=== PATIENT | male | born 1975 | race Caucasian/White ===

== ENCOUNTER 2020-07-24 04:49 | Outpatient (CLI) | payer BC, SELFPAY ==
[2020-07-24 14:44] LABS: HCT 43.6 % (40.0-50.0); HGB 14.9 g/dL (13.5-17.5); MCHC 34.2 % (32.0-36.0); MCV 90.6 fL (80-95); MPV 8.6 fL (8.0-11.0); Platelet Count 210 10^3/uL (130-400); RBC 4.81 10^6/uL (4.36-5.78); RDW 11.8 % (11.8-14.1); RDW-SD 38.9 fL
[2020-07-24 15:44] LABS: ALT 32 U/L (16-63); AST 22 U/L (15-37); Alkaline Phosphatase 32 U/L (46-116); Anion Gap 8.9 mmol/L (3-11); BUN 23 mg/dL (7-18); Bilirubin, Total 0.3 mg/dL (0.2-1.0); CO2 29.1 mmol/L (21.0-32.0); CREATININE 1.45 mg/dL (0.70-1.30); Calcium 8.6 mg/dL (8.5-10.1); Calculated LDL 117 mg/dL (<100); Chloride 100 mmol/L (98-107); Cholesterol 195 mg/dL (<200); Estimated GFR 52.87 (mL/min/1.73m2); Glucose 108 mg/dL (74-106); HDL Cholesterol 60 mg/dL (40-60); Potassium 3.9 mmol/L (3.5-5.1); Sodium 138 mmol/L (136-145); TSH (W/Ref FT4) 1.36 uIU/mL (0.36-3.74); Total Protein 7.3 g/dL (6.4-8.2); Triglyceride 92 mg/dL (<150)
== END 2020-07-24 05:09 ==
PROVIDERS: PCP Nurse Practitioner; Visit Provider Nurse Practitioner
DX: Z00.00 Encounter for general adult medical examination without abnormal findings (principal); R00.0 Tachycardia, unspecified; Z13.220 Encounter for screening for lipoid disorders
CPT/HCPCS: 36415; 80053; 80061; 85027; 84443

== ENCOUNTER 2020-07-27 07:23 | Outpatient (CLI) | payer BC, SELFPAY ==
--- NOTE | 2020-08-06 08:22 | ZIOP_ITS ---
Date of service: 08/06/20 Time of Service: 08:22 14 Day [employer] Referring Provider:: leesa Indications:: tachycardia Note: This is a 14-day remote monitor (worn for 4 days) ?The patient was in normal sinus rhythm for the majority of the recording with an average heart rate of 62 bpm. ?There were 2 episodes of supraventricular tachycardia with the longest lasting 5 beats. ?There were no episodes of ventricular tachycardia, no evidence of high degree heart block, and no pauses greater than 3 seconds. ?There are no episodes of atrial fibrillation. ?There were rare PACs and rare PVCs. ?There were no patient recorded events.
== END 2020-07-27 07:43 ==
PROVIDERS: PCP Nurse Practitioner; Visit Provider Nurse Practitioner
DX: R00.2 Palpitations (principal)
CPT/HCPCS: 0296T

== ENCOUNTER 2021-06-16 10:19 | Emergency (ER) | payer BC, SELFPAY ==
[2021-06-16] VITALS (30 sets, daily range): BP systolic 131–152; BP diastolic 69–83; PULSE 56–73; RESP 10–22; TEMP 36.4; O2SAT 94–100
--- NOTE | 2021-06-16 10:15 | RT.EKG_ITS ---
APPROVED REPORT Exam: Resting ECG Reason for Exam: palpitations Patient Location: E HR:66 bpm ECG Measurements Heart Rate 66 AXIS SC 150 P 78 QRSd 99 QRS 72 QT 385 T 48 QTc 402 Conclusion Sinus rhythm...normal P axis, V-rate 60- 99 ST elev, probable normal early repol pattern...ST elevation, age<55. Sinus. Benign early repolarization. No STEMI. I have reviewed and interpreted ECG and agree with software generated interpretation.
--- NOTE | 2021-06-16 10:30 | DI.RAD_ITS ---
Exam(s) XR CHEST 2V PA LATERAL EXAM: XR CHEST 2V PA LATERAL CLINICAL HISTORY: Palpitations. TECHNIQUE: 2D digital imaging was performed. COMPARISON: No exams were available for comparison FINDINGS: Heart size is normal. The mediastinum is not widened. Lungs are clear. No infiltrates nor pleural effusions. IMPRESSION: No acute pulmonary findings. DATA REPOSITORY: RADIATION DOSE DELIVERED:
[2021-06-16 10:40] LABS: Abs Immature Grans 0.05 10^3/uL (0.0-0.06); Absolute Basophil Count 0.02 10^3/uL (0.0-0.2); Absolute Eosinophil Count 0.05 10^3/uL (0.0-0.7); Absolute Lymphocyte Count 1.13 10^3/uL (1.2-3.4); Absolute Monocyte Count 0.78 10^3/uL (0.1-0.8); Absolute Neutrophil Count 8.04 10^3/uL (1.2-6.7); Basophils % 0.2; Eosinophils % 0.5; HCT 45.1 % (40.0-50.0); HGB 15.4 g/dL (13.5-17.5); Immature Grans % 0.5; Lymphocytes % 11.2; MCH 30.7 pg (27.0-33.0); MCHC 34.1 % (32.0-36.0); MPV 8.4 fL (8.0-11.0); Monocytes % 7.7; Neutrophils % 79.9; Nucleated RBC 0 %; Platelet Count 217 10^3/uL (130-400); RBC 5.01 10^6/uL (4.36-5.78); RDW 11.9 % (11.8-14.1); RDW-SD 39.7 fL; WBC 10.07 10^3/uL (4.4-10.8)
[2021-06-16 10:56] LABS: PTT Activated 24.4 sec (21.0-27.5); Prothrombin Time 10.5 sec (9.3-11.0)
[2021-06-16 11:02] LABS: ALT 43 U/L (16-63); AST 30 U/L (15-37); Albumin 4.1 g/dL (3.4-5.0); Alkaline Phosphatase 31 U/L (46-116); Anion Gap 5.1 mmol/L (3-11); BUN 20 mg/dL (7-18); Bilirubin, Total 0.5 mg/dL (0.2-1.0); CO2 31.9 mmol/L (21.0-32.0); CREATININE 1.4 mg/dL (0.70-1.30); Calcium 8.7 mg/dL (8.5-10.1); Chloride 103 mmol/L (98-107); Glucose 130 mg/dL (74-106); Magnesium 2.1 mg/dL (1.8-2.4); Sodium 140 mmol/L (136-145); TSH (W/Ref FT4) 1.16 uIU/mL (0.36-3.74); Total Protein 7.7 g/dL (6.4-8.2)
[2021-06-16 11:03] LABS: Troponin I < 0.05 ng/mL (<0.06)
[2021-06-16 11:13] LABS: D-Dimer 456 ng/mlFEU (<500)
--- NOTE | 2021-06-16 11:21 | ED.GENADUL_ITS ---
Discharge Plan Disposition Patient Disposition: HOME Condition: Stable Discharge Details Clinical Impression: Chest pain, Palpitation Primary Care Provider: iJa Wilson ED Provider: Godwin Crystal Home Meds and New Rx's Prescriptions: Continued Chantix Starting Month Box 0.5 mg (11)- 1 mg (42) tablets,dose pack See Rx Instructions PO PER PKG DIR Qty: 53 RF: 0 varenicline [Chantix Continuing Month Box] 1 mg tablet 1 mg PO BID Qty: 56 RF: 3 multivitamin [Daily Multi-Vitamin] 1 EACH tablet 1 ea PO DAILY RF: 0 Discharge Instructions Instructions: Chest Pain (ED), Heart Palpitations (ED) Additional Instructions: Work-up in the ER does not reveal any obvious emergent process. I personally spoke with your primary care provider who is aware of your ER visit and will be having her office reach out to you in the next day or so to set up outpatient follow-up. Please watch for new or worsening symptoms and return to the ER for any concerns. Discharge Data Discharge Date/Time-TO BE ENTERED AT DEPARTURE: 06/16/21 13:17 Medical Decision Making This is a 46-year-old male who reports acute on chronic palpitations, A. fib, chest pressure and shortness of breath when his palpitations are present. Most recent episode was around 8:00 this morning and lasted for 15 minutes. He is currently asymptomatic. Clinically he appears well, nontoxic. He does have chronic right lower extremity swelling, given this is chronic in nature, low suspicion for acute DVT. No erythema or warmth. Negative Homans' sign. Given his presentation, will obtain a cardiac work-up including a D-dimer, delta troponin although he can be drawn again at 11:30 AM as this would be 3 hours from his last symptom. Will also obtain thyroid studies. Will obtain chest x- ray as well. He will be placed on the monitoring and evaluation advisor and observed while here in the ER Patient has remained asymptomatic under my care. His laboratory values are unremarkable for leukocytosis, anemia, electrolyte abnormality, D-dimer is normal at 456, creatinine 1.4 with a GFR 54.80 glucose 130 magnesium 2.1 initial troponin less than 0.05 TSH 1.16. Chest x-ray unremarkable. Discussed initial work-up with patient. He remains asymptomatic. He has an appoint with his primary care provider at 330 this afternoon. Given this I will reach out to the patient's primary care provider to discuss his ER visit and symptoms. I was able to speak with Jia Wilson, she is aware of the patient's visit, benign work-up thus far, and will be happy to follow patient as an outpatient. Given his ER visit today he no longer has an appointment at 330 this afternoon and instead she will have her clinic reach out to him to set up an appointment. She will discuss outpatient echo, Holter, potential medication regimen, etc. at the next appointment. I did discuss this plan with the patient. He is comfortable this plan and has no additional questions or concerns. Repeat troponin remains less than 0.05. Patient remains asymptomatic. Patient has no additional questions or concerns and is comfortable discharge at this time. Strict discharge and return precautions provided. This documentation was generated using [employer] system, please disregard any oddities of phrase or misspellings. Medical Records Medical records reviewed: Yes I reviewed the patient's medical records. Imaging Data Radiologic Study: Attestation: I personally reviewed and interpreted this imaging study as follows: Imaging: X-Ray Radiologist's impression: Exam(s) XR CHEST 2V PA LATERAL EXAM: XR CHEST 2V PA LATERAL CLINICAL HISTORY: Palpitations. TECHNIQUE: 2D digital imaging was performed. COMPARISON: No exams were available for comparison FINDINGS: Heart size is normal. The mediastinum is not widened. Lungs are clear. No infiltrates nor pleural effusions. IMPRESSION: No acute pulmonary findings. Lab Data Lab results reviewed: Yes I reviewed the patient's lab results. Labs: Laboratory Tests Range/Units 06/16/21 06/16/21 06/16/21 10:30 10:30 10:30 WBC (4.4-10.8) 10^3/uL 10.07 RBC (4.36-5.78) 10^6/uL 5.01 Hgb (13.5-17.5) g/dL 15.4 Hct (40.0-50.0) % 45.1 MCV (80-95) fL 90.0 MCH (27.0-33.0) pg 30.7 MCHC (32.0-36.0) % 34.1 RDW (11.8-14.1) % 11.9 Plt Count (130-400) 10^3/uL 217 MPV (8.0-11.0) fL 8.4 Immature Gran % 0.5 Neutrophils % 79.9 Lymphocytes % 11.2 Monocytes % 7.7 Eosinophils % 0.5 Basophils % 0.2 Nucleated RBC % % 0 Absolute Neutrophils (1.2-6.7) 10^3/uL 8.04 H Absolute Lymphocytes (1.2-3.4) 10^3/uL 1.13 L Absolute Monocytes (0.1-0.8) 10^3/uL 0.78 Absolute Eosinophils (0.0-0.7) 10^3/uL 0.05 Absolute Basophils (0.0-0.2) 10^3/uL 0.02 PT (9.3-11.0) sec 10.5 INR (0.9-1.1) 1.0 APTT (21.0-27.5) sec 24.4 D-Dimer (<500) ng/mlFEU 456 Sodium (136-145) mmol/L 140 Potassium (3.5-5.1) mmol/L 4.0 Chloride (98-107) mmol/L 103 Carbon Dioxide (21.0-32.0) mmol/L 31.9 Anion Gap (3-11) mmol/L 5.1 BUN (7-18) mg/dL 20 H Creatinine (0.70-1.30) mg/dL 1.4 H Estimated GFR/1.73 m2 (mL/min/1.73m2) 54.80 Glucose (74-106) mg/dL 130 H Calcium (8.5-10.1) mg/dL 8.7 Magnesium (1.8-2.4) mg/dL 2.1 Total Bilirubin (0.2-1.0) mg/dL 0.5 AST (15-37) U/L 30 ALT (16-63) U/L 43 Alkaline Phosphatase (46-116) U/L 31 L Troponin I (<0.06) ng/mL < 0.05 Total Protein (6.4-8.2) g/dL 7.7 Albumin (3.4-5.0) g/dL 4.1 TSH (0.36-3.74) uIU/mL 1.16 Range/Units 06/16/21 12:13 WBC (4.4-10.8) 10^3/uL RBC (4.36-5.78) 10^6/uL Hgb (13.5-17.5) g/dL Hct (40.0-50.0) % MCV (80-95) fL MCH (27.0-33.0) pg MCHC (32.0-36.0) % RDW (11.8-14.1) % Plt Count (130-400) 10^3/uL MPV (8.0-11.0) fL Immature Gran % Neutrophils % Lymphocytes % Monocytes % Eosinophils % Basophils % Nucleated RBC % % Absolute Neutrophils (1.2-6.7) 10^3/uL Absolute Lymphocytes (1.2-3.4) 10^3/uL Absolute Monocytes (0.1-0.8) 10^3/uL Absolute Eosinophils (0.0-0.7) 10^3/uL Absolute Basophils (0.0-0.2) 10^3/uL PT (9.3-11.0) sec INR (0.9-1.1) APTT (21.0-27.5) sec D-Dimer (<500) ng/mlFEU Sodium (136-145) mmol/L Potassium (3.5-5.1) mmol/L Chloride (98-107) mmol/L Carbon Dioxide (21.0-32.0) mmol/L Anion Gap (3-11) mmol/L BUN (7-18) mg/dL Creatinine (0.70-1.30) mg/dL Estimated GFR/1.73 m2 (mL/min/1.73m2) Glucose (74-106) mg/dL Calcium (8.5-10.1) mg/dL Magnesium (1.8-2.4) mg/dL Total Bilirubin (0.2-1.0) mg/dL AST (15-37) U/L ALT (16-63) U/L Alkaline Phosphatase (46-116) U/L Troponin I (<0.06) ng/mL < 0.05 Total Protein (6.4-8.2) g/dL Albumin (3.4-5.0) g/dL TSH (0.36-3.74) uIU/mL ECG Data Attestation: I personally reviewed and interpreted this ECG (s) as follows: Interpretation: Please see official report by Dr. Sibley. Sinus rhythm, ventr icular of 66. Benign early repolarization. No STEMI. HPI General Mode of arrival: ambulatory . Date/Time Provider Initiated Documentation: 06/16/21 10:32 . Limitations to Documentation: no limitations . Information obtained by: patient . HPI Narrative: This is a 46-year-old gentleman, current half a pack a day smoker, past medical history of palpitations-A. fib, presenting to the ER reporting acute on chronic palpitations and when the palpitations are present experiences chest pressure and shortness of breath. Patient states he has had similar symptoms for several years and has been evaluated for this in the past. Recently he has had increased stressors in his life, feels as though his symptoms are more frequent and when they are present they are lasting longer than typical. Most recently he had an episode at 8:00 this morning that lasted for approximately 15 minutes, during that timeframe he had left-sided chest pressure and shortness of breath. He does wear a smart watch and when he has these episodes he is told that he is in A. fib. Contacted his primary care office and directed to the ER for evaluation. Patient reports chronic right lower extremity edema which is unchanged from baseline. Denies increased swelling, redness, history of DVT or PE. He denies cough. He is vaccinated against Covid. He states that in the past he was on propanolol but did not like the way it made him feel and is no longer taking the medication. Related Data Home Medications Medication Instructions Recorded Confirmed multivitamin [Daily Multi-Vitamin] 1 ea PO DAILY 06/24/15 06/16/21 varenicline 0.5 mg (11)-1 mg (42) See Rx Instructions PO PER PKG DIR 07/21/20 06/16/21 tablets in a dose pack #53 dose pk varenicline 1 mg tablet 1 mg PO BID #56 tab 07/21/20 06/16/21 Previous Rx's Medication Instructions Recorded varenicline 0.5 mg (11)-1 mg (42) See Rx Instructions PO PER PKG DIR 07/21/20 tablets in a dose pack #53 dose pk varenicline 1 mg tablet 1 mg PO BID #56 tab 07/21/20 Allergies Allergy/AdvReac Type Severity Reaction Status Date / Time cat dander Allergy Mild Itchy Verified 06/16/21 10:31 eyes, sneeze No Known Drug Allergies Allergy Verified 06/16/21 10:31 General Stated Complaint: Palpitatns PANTERA: 2 Review of Systems Constitutional Constitutional: Denies fever(s), Reports headache(s) and Denies weakness Eyes Eyes: Denies change in vision ENT Ears, Nose, Mouth, and Throat: Reports headache(s) Cardiovascular Cardiovascular: Reports chest pain, Reports palpitations and Reports dyspnea Respiratory Respiratory: Denies cough, Reports dyspnea and Denies wheezing Gastrointestinal Gastrointestinal: Denies abdominal pain, Denies nausea and Denies vomiting Musculoskeletal Musculoskeletal: Denies back pain, Denies numbness and Denies tingling Integumentary/Breasts Skin/Breast: Denies rash Neurologic Neurologic: Reports headache(s), Denies numbness, Denies tingling and Denies weakness Endocrine Endocrine: Reports palpitations Allergic/Immunologic Allergic/Immunologic: Denies wheezing FOR[facility]LY [facility] Medical History Family history of skin cancer Muscle strain Tobacco abuse Surgical History Vasectomy Family History Mother Diabetes Arthritis Father No problems noted. Sister No problems noted. Brother Wlqni-Gdfaqlekg-Klgqs (WPW) syndrome Social History Smoking/Tobacco Use Status: Current every day Tobacco Type: cigarettes Tobacco: How many years used: 20 Quit status: considering quitting Smoking risk assessment performed?: Yes Alcohol Intake: current Alcohol Intake frequency: a few times a month Drug use: Occasionally Substance use type: marijuana Household members: spouse Number of Children: 0 Pets and animals: Yes Pets and animals: dog(s) What is your relationship status?: Panel score (0-1 are the most socially isolated patients): 1 What type of physical activity do you participate in: regular exercise Working smoke detector in home: Yes Carbon monox detector in home: Yes Exam Const General: cooperative, healthy appearing, comfortable and no acute distress Orientation: alert, awake and oriented x3 HENMT Head: normal to inspection, normocephalic and atraumatic Face and sinus: normal facial exam Mouth: moist mucous membranes Eyes General: appearance normal, both eyes and all related structures Conjunctivae: conjunctivae normal Neck Neck: normal visual inspection, trachea midline and supple Chest Chest: normal inspection of the chest and normal palpation of entire chest wall Resp Effort & Inspection: normal respiratory effort and able to speak in complete sentences Auscultation: clear to auscultation bilaterally Cardio Rate: regular rate Rhythm: regular rhythm GI Palpation: soft, not firm, no guarding and nontender Back/Spine/Pelvis Back: No back tenderness Skin General skin exam: no rashes or lesions noted Neuro General: patient alert, patient awake, moves all extremities and no focal motor deficits Cognition: normal cognition Speech: speech normal Gait: normal gait Motor: muscle tone normal throughout Sensory Exam: no sensory deficits noted Extrem General: full ROM and capillary refill normal Other: Right lower extremity with 1+ pitting edema. Patient reports this is b aseline. There is no erythema or warmth. No tenderness. Negative Homans' sign. Psych Appearance: grossly normal Mental Status: mental status grossly normal Course Vital Signs Vital signs: Vital Signs Temperature 36.4 C L 06/16/21 10:27 Pulse 65 06/16/21 10:27 Respiratory Rate 16 06/16/21 10:27 Blood Pressure 152/77 H 06/16/21 10:27 Pulse Oximetry 100 06/16/21 10:27 Temperature 36.4 C L 06/16/21 10:27 Temperature Source Skin 06/16/21 10:27 Pulse 65 06/16/21 10:27 Respiratory Rate 16 06/16/21 10:27 Respiratory Effort 06/16/21 10:27 Blood Pressure 152/77 H 06/16/21 10:27 Blood Pressure Position Supine 06/16/21 10:27 Pulse Oximetry 100 06/16/21 10:27 Pain Level 4 06/16/21 10:35 Lab/Test Results Lab/Test Results: Laboratory Tests Range/Units 06/16/21 06/16/21 06/16/21 10:30 10:30 10:30 WBC (4.4-10.8) 10^3/uL 10.07 RBC (4.36-5.78) 10^6/uL 5.01 Hgb (13.5-17.5) g/dL 15.4 Hct (40.0-50.0) % 45.1 MCV (80-95) fL 90.0 MCH (27.0-33.0) pg 30.7 MCHC (32.0-36.0) % 34.1 RDW (11.8-14.1) % 11.9 Plt Count (130-400) 10^3/uL 217 MPV (8.0-11.0) fL 8.4 Immature Gran % 0.5 Neutrophils % 79.9 Lymphocytes % 11.2 Monocytes % 7.7 Eosinophils % 0.5 Basophils % 0.2 Nucleated RBC % % 0 Absolute Neutrophils (1.2-6.7) 10^3/uL 8.04 H Absolute Lymphocytes (1.2-3.4) 10^3/uL 1.13 L Absolute Monocytes (0.1-0.8) 10^3/uL 0.78 Absolute Eosinophils (0.0-0.7) 10^3/uL 0.05 Absolute Basophils (0.0-0.2) 10^3/uL 0.02 PT (9.3-11.0) sec 10.5 INR (0.9-1.1) 1.0 APTT (21.0-27.5) sec 24.4 D-Dimer (<500) ng/mlFEU 456 Sodium (136-145) mmol/L 140 Potassium (3.5-5.1) mmol/L 4.0 Chloride (98-107) mmol/L 103 Carbon Dioxide (21.0-32.0) mmol/L 31.9 Anion Gap (3-11) mmol/L 5.1 BUN (7-18) mg/dL 20 H Creatinine (0.70-1.30) mg/dL 1.4 H Estimated GFR/1.73 m2 (mL/min/1.73m2) 54.80 Glucose (74-106) mg/dL 130 H Calcium (8.5-10.1) mg/dL 8.7 Magnesium (1.8-2.4) mg/dL 2.1 Total Bilirubin (0.2-1.0) mg/dL 0.5 AST (15-37) U/L 30 ALT (16-63) U/L 43 Alkaline Phosphatase (46-116) U/L 31 L Troponin I (<0.06) ng/mL < 0.05 Total Protein (6.4-8.2) g/dL 7.7 Albumin (3.4-5.0) g/dL 4.1 TSH (0.36-3.74) uIU/mL 1.16
[2021-06-16 12:42] LABS: Troponin I < 0.05 ng/mL (<0.06)
== END 2021-06-16 13:17 | disposition home or self-care (01) ==
PROVIDERS: Emergency Provider Physician Assistant; PCP Nurse Practitioner
DX: R07.9 Chest pain, unspecified (principal); R00.2 Palpitations; R06.02 Shortness of breath
CPT/HCPCS: 36415; 80053; 93005; 99284; 71046; 83735; 84443; 84484; 85025; 85379; 85610; 85730; 93010

== ENCOUNTER 2021-07-01 02:12 | Outpatient (CLI) | payer BC, SELFPAY ==
[2021-07-01 08:20] LABS: Hemoglobin A1C 5.1 % (<5.7)
[2021-07-01 09:21] LABS: ALT 31 U/L (16-63); AST 16 U/L (15-37); Albumin 3.8 g/dL (3.4-5.0); Alkaline Phosphatase 28 U/L (46-116); Anion Gap 6.8 mmol/L (3-11); BUN 17 mg/dL (7-18); Bilirubin, Total 0.5 mg/dL (0.2-1.0); CO2 30.2 mmol/L (21.0-32.0); CREATININE 1.3 mg/dL (0.70-1.30); Calcium 8.9 mg/dL (8.5-10.1); Calculated LDL 120 mg/dL (<100); Chloride 103 mmol/L (98-107); Cholesterol 181 mg/dL (<200); Glucose 90 mg/dL (74-106); HDL Cholesterol 49 mg/dL (40-60); Potassium 4.4 mmol/L (3.5-5.1); Sodium 140 mmol/L (136-145); TSH (W/Ref FT4) 1.11 uIU/mL (0.36-3.74); Total Protein 6.9 g/dL (6.4-8.2); Triglyceride 60 mg/dL (<150)
== END 2021-07-01 02:13 | disposition home or self-care (01) ==
LOC: LBO 02:12
PROVIDERS: PCP Nurse Practitioner; Visit Provider Nurse Practitioner
DX: R00.2 Palpitations (principal); R07.9 Chest pain, unspecified; R79.89 Other specified abnormal findings of blood chemistry
CPT/HCPCS: 36415; 80053; 80061; 83036; 84443; 84481

== ENCOUNTER 2021-07-13 01:51 | Outpatient (CLI) | payer BC, SELFPAY ==
--- NOTE | 2021-07-13 09:00 | ETT_ITS ---
APPROVED REPORT Exam: Exercise Treadmill Patient Location: Out-Patient Room/Bed: Stress Nurse: Corry Zambrano RN Ordering Provider:JAKOB MATA, Contact Number: [phone] BMI: 26.60 Baseline Rhythm: Sinus Bradycardia Comment: diffuse ST elevations Indications: CHEST PAIN, PALPITATIONS, EXERTIONAL HEART RACING, LIGHTHEADED Medical History Medical History: Cardiac murmur, Tobacco abuse, Scammon disease Cardiac Medications: None Allergies: No known drug allergies Cardiac Risk Factors: FHX of CAD, Smoking (current) Previous Cardiac Procedures: None Pretest Chest Pain Characteristics: None Exercise History: Physically active Physical Disabilities: None Lung Sounds: Clear to auscultation Heart Sounds: Regular Stress Test Details Test: Exercise stress testing was performed using a Ishan protocol. Rest Stress HR Resting HR Supine: 57 bpm Max Heart Rate (APMHR): 175 bpm Resting HR Standin bpm Target HR (85% APMHR): 148 bpm Max HR Achieved: 167 bpm % of APMHR: 95 Recovery HR: 92 bpm HR response to stress: Normal HR response to stress BP Resting BP Supine: 130/78 mmHg Resting BP Standin/78 mmHg Max BP: 178/84 mmHg Recovery BP: 158/78 mmHg BP response to stress: Abnormal hypotensive response to stress. ECG Resting ECG: Sinus Bradycardia Ectopy: None Comment: diffuse ST elevations Stress ECG: Sinus Tachycardia ST Change: No significant ST segment changes noted Arrhythmia: PVCs increasing in frequency during 3rd and 4th stages Recovery ECG: Sinus Rhythm Recovery ST Change: No significant ST segment changes noted Recovery Arrhythmia: frequent PVCs in beginning of recovery phase Clinical Reason for Termination: Fatigue Stress Symptoms: General Fatigue, Dyspnea Exercise duration: 13 min45 sec Highest Stage Reached: Stage 5: 5.0 mph at 18% grade. Exercise capacity: 14.69 METs Rosenthal Treadmill Score: 12 Rate Pressure Product: [id number] Stress ECG Conclusion 1. Resting electrocardiogram was normal 2. The patient exercised on the Ishan protocol and completed a workload of 14.69 METS, stopping due t o fatigue 3. Normal heart rate and blood pressure response to exercise. The patient achieved 95% of predicted heart rate for age 4. Echocardiographically there was no evidence of myocardial ischemia 5. Premature ventricular contractions were described in late exercise and early recovery. This is a nonspecific finding Rosenthal Treadmill Score is 12 which is Low risk. Stress Test Summary STAGE Time (mins) Speed (mph) Grade (%) HR BP SYMPTOMS METS Supine 57 130/78 Standing 65 132/78 1 3 1.7 10 88 134/76 4.6 2 6 2.5 12 109 142/76 7 3 9 3.4 14 128 152/78 10.2 4 12 4.2 16 148 154/80 SpO2 97%, c/o mod SOB 12.9 1 min recovery 148 158/82 3 min recovery 102 178/84 6 min recovery 92 158/78 Patient denied any symptoms of chest pain or palpitations during exercise or in recovery period.
== END 2021-07-13 02:11 ==
PROVIDERS: PCP Nurse Practitioner; Visit Provider Nurse Practitioner
DX: R00.2 Palpitations (principal); R07.9 Chest pain, unspecified; R00.0 Tachycardia, unspecified; R42 Dizziness and giddiness; Z82.49 Family history of ischemic heart disease and other diseases of the circulatory system; F17.210 Nicotine dependence, cigarettes, uncomplicated
CPT/HCPCS: 93017

== ENCOUNTER 2021-08-05 02:37 | Outpatient (CLI) | payer BC, SELFPAY ==
--- NOTE | 2021-08-05 10:31 | DI.US_ITS ---
APPROVED REPORT EXAM: Comprehensive 2D, Doppler, and color-flow Echocardiogram Patient Location: Out-Patient Apn: Praveena Bustamante RDCS (AE) Indications: Palpitations, Chest pain Other Information Study Quality: Good Conclusion Normal left ventricular wall thickness and chamber size. Estimated ejection fraction is 60%. Wall m otion is normal Normal right ventricular size and systolic function Both atria are normal in size The aortic valve is sclerotic without stenosis or regurgitation. The number of aortic valve leaflets could not be accurately determined The ascending aorta was not well visualized Wall motion Left Ventricle The left ventricle is normal size. The left ventricular systolic function is normal. The left ventric ular ejection fraction is within the normal range. There is normal left ventricular wall thickness. T here is normal LV segmental wall motion. There is no ventricular septal defect visualized. LVEF is 60 %. Right Ventricle The right ventricle is normal size. The right ventricular systolic function is normal. The RVSP is 26 .1 mmHg. Atria The left atrium size is normal. The right atrium size is normal. The interatrial septum is intact wit h no evidence for an atrial septal defect. Aortic Valve The aortic valve is sclerotic Number of valve leaflets could not be accurately determined No hemodyna mically significant valvular aortic stenosis. No aortic regurgitation is present. Mitral Valve The mitral valve is normal in structure. No evidence of mitral valve stenosis. Trace mitral regurgita tion. Tricuspid Valve The tricuspid valve is normal in structure. There is no tricuspid valve stenosis. Trace tricuspid reg urgitation. Pulmonic Valve The pulmonary valve is normal in structure. There is no pulmonic valvular stenosis. There is no pulmo ana valvular regurgitation. Great Vessels The aortic root is normal in size. Ascending aorta is not well visualized. Aortic arch is normal in c aliber. IVC is normal in size and collapses >50% with inspiration. Pericardium There is no pericardial effusion. 2D Dimensions IVSD d PLAX 0.90 cm M: 0.6-1.2 LV Vol A2C d MOD 137.5 mL LVPW d PLAX 0.96 cm M: 0.6 - 1.2 LV Vol A4C d MOD 122.9 mL LVID d PLAX 5.18 cm M: 4.2 - 5.8 LA vol/ BSA A2C s A-L 22.0 mL/m2 LVDs 3.40 cm M: 2.5 - 4.0 LA vol/ BSA A4C s A-L 15.0 mL/m2 Ao Root d 3.07 cm M: 3.1 - 3.7 LA Vol/ BSA Biplane s A-L 18.5 mL/m2 RA Area A4C 8.88 cm2 LA Area A4C s MOD 11.79 cm2 RA Vol/ BSA A4C s A-L 9.5 mL/m2 LA Area A2C s MOD 14.52 cm2 LV EF Teichholz 62.2 % LV EF A4C MOD 60.0 % LVEF (Rebolledo's) 61.10 % M: 52 - 72 LV EF A2C MOD 60.0 % LV Volume 102.66 mL M: 62 - 150 LV EF Biplane MOD 61.1 % LV Volume Index 53.19 mL/m2 M: 34 - 74 SV 82.64 mL LV Vol Biplane MOD 135.3 mL SV Index 42.80 mL/m2 FS 33.75 % M-Mode TAPSE 2.89 cm (M/F) >1.7 LV Diastology MV E' medial 0.120 (>0.07 m/s) E/A Ratio 1.6 LV E/e MED 7.45 (<14) MV E Vmax 0.90 (0.4-1.3 m/s) MV E' lateral 0.191 (>0.1 m/s) MV A Vmax 0.55 (0.4-1.3 m/s) LV E/e LAT 4.65 (<14) MV E/A Ratio 1.54 MV E/E' medial 7.47 MV E/E' lateral 4.70 Aortic Valve LVOT Area 2.99 cm2 AoV Area Vmax 1.52 cm2 LVOT Vmax 1.23 m/s AoV Area/ BSA (Vmax) 0.79 cm2/m2 LVOT Mean Donald. 0.79 m/s KATHERINE Mean Donald. 1.39 cm2 LVOT Peak Grad 6.0 mmHg KATHERINE Mean Donald. Index 0.72 cm2/m2 LVOT Mean Grad 3.0 mmHg LVOT VTI 0.276 m LVOT Diam s 1.95 cm AoV Vmax 2.41 m/s Velocity Ratio 0.51 AoV Mean Donald. 1.71 m/s AoV Peak Grad 23.3 mmHg LVOT SV 82.80 mL AoV Mean Grad 13.1 mmHg AoV VTI 0.477 m AoV Area VTI 1.73 cm2 AoV Area/ BSA (VTI) 0.90 cm/m2 Mitral Valve MV DT 195 (160-240 msec) MV PHT 56 msec MV Area PHT 3.90 cm2 MV VTI 0.345 m MV Area VTI 2.40 (4.0-6.0 cm2) Pulmonary Valve PV Vmax 1.33 (0.5-1.5 m/s) RVOT Peak Gr. 4.06 mmHg PV Peak Grad 7.1 mmHg RVOT Mean Gr. 1.95 mmHg PV Mean Grad 3.6 mmHg RVOT VTI 0.223 m PV VTI 0.261 m RVOT Vmax 1.01 m/s Tricuspid Valve TR Peak Grad 23.1 mmHg TR Vmax 2.40 m/s RA Pressure 3.00 mmHg RVSP (TR) 26.1 mmHg
== END 2021-08-05 02:57 ==
PROVIDERS: PCP Nurse Practitioner; Visit Provider Nurse Practitioner
DX: R00.2 Palpitations (principal); R07.9 Chest pain, unspecified; I35.8 Other nonrheumatic aortic valve disorders
CPT/HCPCS: 93306

== ENCOUNTER 2021-09-21 08:05 | Outpatient (CLI) | payer BC, SELFPAY ==
--- NOTE | 2021-09-21 08:00 | RT.EKG_ITS ---
APPROVED REPORT Exam: Resting ECG Reason for Exam: chest pain Patient Location: O HR:57 bpm ECG Measurements Heart Rate 57 AXIS SD 159 P 75 QRSd 98 QRS 67 QT 402 T 36 QTc 392 Conclusion Sinus rhythm...normal P axis, V-rate 50- 99 ST elev, probable normal early repol pattern...ST elevation, age<55 Normal Electrocardiogram
== END 2021-09-21 08:06 | disposition home or self-care (01) ==
LOC: DI.CARD 08:06
PROVIDERS: PCP Nurse Practitioner; Visit Provider Internal Medicine Cardiovascular Disease
DX: R00.2 Palpitations (principal); R07.9 Chest pain, unspecified
CPT/HCPCS: 93010

== ENCOUNTER 2022-10-05 02:45 | Outpatient (CLI) | payer BC, SELFPAY ==
[2022-10-06 11:54] LABS: HIV-1/2 Ag & Ab Screen Negative (Negative)
[2022-10-06 12:59] LABS: Hepatitis C Ab w Rflx HCV PCR Negative (Negative)
== END 2022-10-05 02:46 | disposition home or self-care (01) ==
LOC: LBO 02:45
PROVIDERS: PCP Nurse Practitioner; Visit Provider Nurse Practitioner
DX: Z11.59 Encounter for screening for other viral diseases (principal); Z11.4 Encounter for screening for human immunodeficiency virus [HIV]
CPT/HCPCS: 36415; 86803; 87389

== ENCOUNTER 2024-12-04 08:18 | Outpatient (CLI) | payer BC, SELFPAY ==
--- NOTE | 2024-12-04 08:15 | RT.EKG_ITS ---
APPROVED REPORT Exam: Resting ECG Reason for Exam: heart flutter, palpatations Patient Location: O HR:52 bpm ECG Measurements Heart Rate 52 AXIS DC 178 P 90 QRSd 86 QRS 73 QT 409 T 40 QTc 381 Conclusion Sinus rhythm...normal P axis, V-rate 50- 99 Normal Electrocardiogram
== END 2024-12-04 08:19 | disposition home or self-care (01) ==
LOC: DI.KIM 08:19
PROVIDERS: PCP Nurse Practitioner; Visit Provider Nurse Practitioner
DX: R00.2 Palpitations (principal); R00.0 Tachycardia, unspecified; I48.92 Unspecified atrial flutter
CPT/HCPCS: 93010

== ENCOUNTER 2025-02-01 03:45 | Emergency (ER) | payer BC, SELFPAY ==
[2025-02-01 03:49] VITALS: BP 150/73; PULSE 68; TEMP 36.8; O2SAT 99
--- NOTE | 2025-02-01 03:55 | W.ED.GENAD ---
Discharge Plan Disposition Patient Disposition: Home Condition: Good Discharge Details Clinical Impression: Back pain Primary Care Provider: Jia Wilson ED Provider: Jasmin Briggs Home Meds and New Rx's Prescriptions: New cyclobenzaprine 5 mg tablet 5 mg PO TID PRNQty: 7 0RF Continued desonide 0.05 % ointment 1 applic topical BID Qty: 60 0RF prednisone 50 mg tablet 50 mg PO DAILY Qty: 10 0RF gabapentin 300 mg capsule 300 mg PO BID Qty: 60 0RF multivitamin [Daily Multi-Vitamin] 1 EACH tablet 1 ea PO DAILY lorazepam 1 mg tablet 1 mg PO DAILY PRN (Reason: anxiety) Qty: 2 0RF Discharge Instructions Instructions: Low Back Pain ED Additional Instructions: Continue all of your medications. You can take 600mg of gabapentin twice a day and see if this helps. You can also start taking cyclobenzaprine up to three times a day. Use caution driving when you take this medication as it can make you very sleepy. Call your primary care doctor in the morning to schedule an anointment for within 72 hours to followup on your visit today. Return to the emergency department for new or worsening symptoms including new/different/worse pain, inability to walk, bowel or bladder incontinence, numbness in your groin, muscle weakness, fever, or if you have any other concerns. HPI General Mode of arrival: ambulatory. Date/Time Provider Initiated Documentation: 02/01/25 03:46. Limitations to Documentation: no limitations. Information obtained by: patient. HPI Narrative: 49yo M presenting with low back pain. Symptoms started 4 days ago, no provoking event/trauma/exertion. Has had low back pain on the left with sharp radiation down his left thigh. Worse when he lays down. Numbness to his left thigh. No weakness. Saw his PCP for this and was refferred for MRI, started on prednisone and gabapentin. Also taking ibuprofen, last at midnight. Pain persists and is somewhat worse, keeping him awake tonight. Numbness is unchanged. No bowel or bladder incontinence. No saddle anesthesia. No hx of IVDU or spinal surgery or spinal instrumentation at any point. He is otherwise in his usual state of health with no fevers, chills, rash, dysuria, hematuria, or other concerns. Related Data Home Medications ?Medication ?Instructions ?Recorded ?Confirmed multivitamin (Daily Multi-Vitamin 1 ea PO DAILY 06/24/15 02/01/25 tablet) desonide 0.05 % topical ointment 1 applic topical BID #60 grams 01/29/25 02/01/25 gabapentin 300 mg capsule 300 mg PO BID #60 caps 01/29/25 02/01/25 prednisone 50 mg tablet 50 mg PO DAILY #10 tabs 01/29/25 02/01/25 lorazepam 1 mg tablet 1 mg PO DAILY PRN anxiety #2 tabs 01/31/25 02/01/25 cyclobenzaprine 5 mg tablet 5 mg PO TID PRN #7 tabs 02/01/25 Previous Rx's ?Medication ?Instructions ?Recorded desonide 0.05 % topical ointment 1 applic topical BID #60 grams 01/29/25 gabapentin 300 mg capsule 300 mg PO BID #60 caps 01/29/25 prednisone 50 mg tablet 50 mg PO DAILY #10 tabs 01/29/25 lorazepam 1 mg tablet 1 mg PO DAILY PRN anxiety #2 tabs 01/31/25 cyclobenzaprine 5 mg tablet 5 mg PO TID PRN #7 tabs 02/01/25 Allergies Allergy/AdvReac Type Severity Reaction Status Date / Time cat dander Allergy Mild Itchy Verified 02/01/25 03:53 eyes, sneeze General Stated Complaint: Nk/Back Pain PANTERA: 4 Review of Systems Narrative: see HPI Exam Narrative Exam Narrative: General: Alert, well appearing, well nourished, in no acute distress. Head: Normocephalic, atraumatic Neck: Trachea midline, ?Neck supple. Cardiac: ?No cyanosis. Resp: No respiratory distress. Speaking in full sentences. Abd: ?Non-distende : ?No suprapubic tenderness or fullness. Extremities: ?No deformities.? No peripheral edema. Back: No midline tenderness. Palpable muscle spasm and tenderness low lumbar/high sacral spine. Neuro: ? GCS 15.? Fluent speech, no dysarthria. Motor- 5/5 strength symmetric bilateral upper and lower extremities Sensation- Subjectively diminished to light touch in L2/L3 dermatomes, otherwise intact to light touch and symmetric multiple dermatomes including upper and lower extremities. No saddle anesthesia. Reflexes- 2/4 achilles & patellar, no clonus Gait/station: ?Normal stance.? No truncal ataxia. Steady gait with equal normal steps SLR: negative bilaterally Rectal: Pt declined Course Vital Signs Vital signs: Vital Signs Temperature 36.8 C 02/01/25 03:49 Pulse 68 02/01/25 03:49 Blood Pressure 150/73 H 02/01/25 03:49 Pulse Oximetry 99 02/01/25 03:49 Temperature 36.8 C 02/01/25 03:49 Pulse 68 02/01/25 03:49 Blood Pressure 150/73 H 02/01/25 03:49 Pulse Oximetry 99 02/01/25 03:49 Pain Level 8 02/01/25 03:51 Medical Decision Making 49yo M presenting with 4 days of atraumatic low back pain radiating down his left thigh. Unrelieved by prednisone, gabapentin, and ibuprofen as advised by his PCP. Vital signs reassuring on arrival, no midline tenderness on exam. No saddle anesthesia. Normal reflexes. Subjective numbness to left thigh L2/L3 distribution which per patient is unchanged since Monday. Has referral for MRI. No red flags on history or exam; not suspicious for cauda equina, spinal epidural abscess or hematoma, acute fracture, osteomyeltis, discitis, aortic aneursyem. No indication for labs or imaging at this time; would not transfer for MRI. Will treat symptoms with tylenol, toradol, flexeril, lidocaine patch. On reassessment he reports pain remains unchanged. Discussed options for proceeding, including increasing dose of gabapentin with dose here in the ED. He states his PCP told him he could take 2 gabapentin rather than one if his pain was uncontrolled; has only been taking one. He declined gabapentin here in the ED and would prefer to take it at home. Offered short course of cyclobenzaprine which he agreed to. Strict return precautions were reviewed including s/s to prompt immediate return to the emergency department. Discharged home to followup with PCP; discharge instructions and return precautions were reviewed with patient who verbalized understanding. All questions were answered and he is in full agreement with the plan. Ambulated of department easily independently with steady normal gait. PFSH All Active Problems (Updated 02/01/25 @ 05:40 by Jasimn Briggs MD) Back pain (Acute) Left leg numbness (Acute) Lumbago with sciatica, left side (Acute) BCC (basal cell carcinoma), face (Acute ~01/2024) R upper nasal sidewall Nodular type, ulcerated, present at peripheral specimen edge and close to the deep edge Nevus of face (Acute) 01/19/24 shave bx done to r/o BCC R nasal wall. Verruca vulgaris (Acute) 08/11/22 Dr Jimenez Chest pain (Acute) Palpitation (Acute) Abnormal blood chemistry (Acute) Tobacco abuse (Acute) Family history of skin cancer (Acute) Tachycardia (Acute) Screening for cholesterol level (Acute) Routine medical exam (Acute) Muscle pain (Acute) Muscle strain (Acute) Surgical History Vasectomy Family History Mother Diabetes Arthritis Father No problems noted. Sister No problems noted. Brother Ldgwo-[id number]-Nlqwd (WPW) syndrome Social History Smoking/Tobacco Use Status: Current every day Tobacco Type: cigarettes Smoking packs per day: 0.75 Smoking cigarettes per day: 15.0 Tobacco: How many years used: 30 Quit status: considering quitting Smoking risk assessment performed?: Yes Alcohol Intake: current Alcohol Intake frequency: 0-2 drinks per day Details: not currently consuming any alcohol per pt Drug use: Occasionally Substance use type: marijuana Counseling provided: provider counseling (discussed smoking cessation, but not quite ready) Adopted: No Caregiver/Support person: No Foster care: No Household members: spouse Housing: house Number of Children: 0 Communication Needs: Corrective Lenses Education Level: vocational Do you need help understanding health information?: Rarely 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 Pets and animals: Yes Pets and animals: dog(s) Sexually active: Yes Do you think of yourself as: straight/heterosexual Current gender identity: male What is your relationship status?: How often do you talk on the phone with friends or family?: once per week How often do you get together with friends or relatives?: once per week Do you belong to any clubs or organized social groups?: yes Panel score (0-1 are the most socially isolated patients): 2 What type of physical activity do you participate in: regular exercise and weight lifting Duration: 45-60 minutes/day Frequency: 3-4 times per week Seatbelt use: always Helmet use: Yes Helmet use: sometimes Drive intox or ride w/intox livery car driver: No Working smoke detector in home: Yes Carbon monox detector in home: Yes Do you feel safe at home: Yes Do you feel safe in your relationship?: Yes Victim of physical abuse: No Victim of emotional abuse: No
[2025-02-01] MEDS: Acetaminophen 500 MG TAB 1000 MG PO (04:43)
[2025-02-01] MEDS: Cyclobenzaprine 10 MG TAB PO (04:43)
[2025-02-01] MEDS: Lidocaine 5% Patch 1 PATCH TP (04:44)
[2025-02-01] MEDS: Ketorolac 15 MG/ML VIAL IM (04:44)
[2025-02-01] MEDS: Cyclobenzaprine 10 MG TAB 5 MG PO (05:47)
== END 2025-02-01 05:47 | disposition home or self-care (01) ==
PROVIDERS: Emergency Provider Student in an Organized Health Care Education/Training Program; PCP Nurse Practitioner
DX: M54.42 Lumbago with sciatica, left side (principal); F17.210 Nicotine dependence, cigarettes, uncomplicated
CPT/HCPCS: 96372; 99284; 99283; J1885

== ENCOUNTER 2025-02-05 00:31 | Outpatient (CLI) | payer BC, SELFPAY ==
--- NOTE | 2025-02-05 10:45 | DI.MRI_ITS ---
Exam(s) MR LUMBAR SPINE WO EXAM: MR LUMBAR SPINE WO CLINICAL HISTORY: Lumbago with sciatica, lt side, lt leg numbness, M54.42, R20.0. TECHNIQUE: Multiplanar multisequence MRI of the Lumbar spine was performed. COMPARISON: CR XR CHEST 2V PA LATERAL from 06/16/2021 FINDINGS: Bones: The last intervertebral disc space is designated the L5/S1 level for the numbering purpose of this examination. The vertebral body heights are well maintained. Alignment: Unremarkable. The marrow signal characteristics are unremarkable. Cord: The conus tip ends at the T12 level. It is of normal size and signal intensity. T12-L1: No focal disc herniation is present. No central spinal canal stenosis.No neural foraminal stenosis. L1-2: No focal disc herniation is present. No central spinal canal stenosis.No neural foraminal stenosis. L2-3: No focal disc herniation is present. No central spinal canal stenosis.No neural foraminal stenosis. L3-4: Mild loss of disc height and mild disc bulging.No focal disc herniation is present. No central spinal canal stenosis.No neural foraminal stenosis. L4-5:Mild loss of disc height and mild disc bulging. Mild facet degenerative changes. No focal disc herniation is present. No central spinal canal stenosis.No neural foraminal stenosis. L5-S1: No focal disc herniation is present. No central spinal canal stenosis.No neural foraminal stenosis. The visualized SI joints and sacrum are unremarkable. Soft tissues: The paraspinal soft tissues are unremarkable. IMPRESSION: Mild degenerative disc changes at L5 at L3-4 and L4-5. No significant neural foraminal narrowing or central canal stenosis.. DATA REPOSITORY:
== END 2025-02-05 00:51 ==
PROVIDERS: PCP Family Medicine; Visit Provider Family Medicine
DX: M54.42 Lumbago with sciatica, left side (principal); R20.0 Anesthesia of skin
CPT/HCPCS: 72148

== ENCOUNTER 2025-04-17 15:24 | Outpatient (REF) | payer BC, SELFPAY ==
[2025-04-17 16:56] LABS: Glucose Negative (Negative)
== END 2025-04-17 15:25 | disposition home or self-care (01) ==
LOC: LBN 15:24
PROVIDERS: PCP Nurse Practitioner; Visit Provider Nurse Practitioner Adult Health
DX: R39.89 Other symptoms and signs involving the genitourinary system (principal)
CPT/HCPCS: 81003